=== PATIENT | female | born 1980 | race Caucasian/White ===

== ENCOUNTER 2024-04-10 09:29 | Outpatient (CLI) | payer BC | END 2024-04-10 23:59 | disposition home or self-care (01) | LOC: RAD 09:29 | PROVIDERS: ATTEND Podiatrist Foot & Ankle Surgery | DX: M19.071 Primary osteoarthritis, right ankle and foot (principal); M77.41 Metatarsalgia, right foot; Q66.81 Congenital vertical talus deformity, right foot; M79.671 Pain in right foot; Z98.1 Arthrodesis status | CPT/HCPCS: 73700 ==

== ENCOUNTER 2024-04-18 11:00 | Outpatient (CLI) | payer BC | END 2024-04-18 23:00 | disposition home or self-care (01) | LOC: MRI02 11:00 | PROVIDERS: ATTEND Podiatrist Foot & Ankle Surgery | DX: M19.071 Primary osteoarthritis, right ankle and foot (principal); M20.41 Other hammer toe(s) (acquired), right foot; M77.41 Metatarsalgia, right foot; M79.671 Pain in right foot; Z98.1 Arthrodesis status | CPT/HCPCS: 73718 ==